=== PATIENT | female | born 1995 | race Caucasian/White ===

== ENCOUNTER 2018-10-10 01:26 | Emergency (ER) | payer OTHER, MEDICAID ==
--- NOTE | 2018-10-10 01:48 | ED Physician Documentation ---
PD HPI DYSPNEA - Stated complaint Stated Complaint: ASTHMATIC SYMPTOMS - Chief complaint Chief Complaint: Resp - History obtained from History obtained from: Patient - History of Present Illness Timing - onset: How many hours ago (6) Timing - onset during: Other (Cleaning out a storage unit) Timing - duration: Hours (5) Timing - details: Gradual onset Inciting event(s): Out of meds Improved by: Inhaler/neb Associated symptoms: Cough. No: Fever Similar symptoms before: Diagnosis Recently seen: Not recently seen - Additional information Additional information: This is a 23-year-old transgender woman who presents with complaints that she was helping her mother clean a storage unit out for couple of hours and started to have a flare of her asthma round 730 last night. She says she has not had any recent illness but she has had a bit of cough and stuffy nose that she had related to allergies since returning home from college in [place]. She would normally have access to a rescue inhaler but does not have a current prescription and her nebulizer is broken although she has the Xopenex that would go in it. She has been on steroids in the past most recent time was in January 2018. She said no current fever. Denies sore throat. Review of Systems Constitutional: denies: Fever Ears: denies: Ear pain Nose: reports: Rhinorrhea / runny nose, Congestion Throat: reports: Sore throat Respiratory: reports: Dyspnea, Cough, Wheezing PD PAST MEDICAL HISTORY - Past Medical History Past Medical History: Yes Cardiovascular: None Respiratory: Asthma, Other Endocrine/Autoimmune: None GI: None [employer]: None : None HEENT: None Psych: ADD/ADHD Musculoskeletal: Fibromyalgia, Fatigue, Chronic back pain, Other Derm: Eczema, Other - Past Surgical History Past Surgical History: Yes Ortho: Carpal Tunnel surgery - Present Medications Home Medications: Ambulatory Orders Medication Instructions Recorded Confirmed Fluticasone/Salmeterol 500/50 1 puffs INH BID 07/01/13 07/01/13 [Advair 500 Mcg/50 Mcg] Albuterol Sulf [Ventolin Hfa 1 - 2 puffs INH Q4HR PRN #1 inhaler 10/10/18 Inhaler] predniSONE [Prednisone] 60 mg PO DAILY #10 tablet 10/10/18 - Allergies Allergies/Adverse Reactions: Allergies Allergy/AdvReac Type Severity Reaction Status Date / Time No Known Drug Allergies Allergy Verified 10/10/18 01:42 - Social History Does the pt smoke?: No Smoking Status: Never smoker Does the pt drink ETOH?: No Does the pt have substance abuse?: No - Immunizations Immunizations are current?: Yes - POLST Patient has POLST: No PD ED PE NORMAL - Vitals Vital signs reviewed: Yes - General General: Alert and oriented X 3, No acute distress, Well developed/nourished, Other (Obese transgender woman. Very pleasant.) - HEENT HEENT: Atraumatic - Neck Neck: No adenopathy, No JVD - Cardiac Cardiac: RRR, No murmur - Respiratory Respiratory: No respiratory distress, Clear bilaterally - Abdomen Abdomen: Normal bowel sounds - Extremities Extremities: No edema - Psych Psych: Normal mood, Normal affect Results - Vitals Vitals: Vital Signs - 24 hr 10/10/18 10/10/18 10/10/18 01:40 01:53 01:55 Temperature 36.0 C L Heart Rate 73 88 79 Respiratory 18 16 18 Rate Blood Pressure 127/75 145/78 H O2 Saturation 99 100 Oxygen O2 Source Room air PD MEDICAL DECISION MAKING - ED course ED course: Patient was wheezy when she arrived here in the emergency department was given an albuterol nebulizer before I even interacted with her. She said she is feeling much better. She does not really feel like she needs prednisone at this time but I am going to give her a back-up prescription apparently this is been happening whenever she returns from college. She thinks there may be something in the home that she is reacting to. Departure - Departure Disposition: 01 Home, Self Care Clinical Impression: Asthma Qualifiers: Asthma severity: moderate Asthma persistence: unspecified Asthma complication type: with acute exacerbation Qualified Code(s): J45.901 - Unspecified asthma with (acute) exacerbation Condition: Good Instructions: Asthma Dc Follow-Up: [facility] [Provider Group] Prescriptions: Albuterol Sulf [Ventolin Hfa Inhaler] 1 - 2 puffs INH Q4HR PRN #1 inhaler PRN Reason: Shortness Of Air/Wheezing predniSONE [Prednisone] 60 mg PO DAILY #10 tablet Comments: Use the inhaler up to every 4 hours as needed. I have provided a prescription for prednisone if your symptoms are not improving with just the inhaler you can take a 5-day course. Return to the emergency department as needed. I would recommend that you establish with a primary care provider for further management.
[2018-10-10] MEDS ORDERED: ALBUTEROL NEB 2.5 MG/3 ML INH STA (01:50)
[2018-10-10 02:28] VITALS: BP 137/73
== END 2018-10-10 02:47 | disposition home or self-care (01) ==
LOC: ED 01:26
DX: J45.901 Unspecified asthma with (acute) exacerbation (principal)
CPT/HCPCS: 94640; 99283; 99284